=== PATIENT | male | born 1955 | race Caucasian/White ===

== ENCOUNTER 2017-07-07 14:32 | Inpatient (IN) | payer BC ==
[2017-07-07 15:11] LABS: Hemoglobin 14.8 g/dL (14.0-18.0); Mean Corpuscular HGB CONC 34.3 g/dL (32.0-36.0); Mean Corpuscular Hemoglobin 33.3 pg (27.0-31.0); Mean Corpuscular Volume 97.3 fl (80.0-94.0); Mean Platelet Volume 8.7 fL (7.4-10.4); Platelet Count 218 thou/uL (130-400); RBC Distribution Width 11.9 % (11.5-14.5); Red Blood Cell (RBC) Count 4.45 mill/uL (4.70-6.10); White Blood Cell (WBC) Count 21.4 thou/uL (4.8-10.8)
[2017-07-07 15:25] LABS: Band 6 % (5-11); Lymphocytes 7 % (21-51); MDiff Complete? YES; Metamyelocyte 1 % (0-0); Monocytes 4 % (0-10); Myelocyte 1 % (0-0); Neutrophil 81 % (42-75); PLT Morphology Comment Appears Adequate; RBC Morphology Normal
[2017-07-07] MEDS ORDERED: Fentanyl 100 MCG/2 ML VIAL ONE ×5 (15:25→21:03)
--- NOTE | 2017-07-07 15:32 | RAD ---
TWO AP VIEWS OF THE CHEST 07/07/17 INDICATION: Patient fell from a storage trailer, found on left side with femur pain. COMPARISON: None. FINDINGS: The lungs are clear. No pleural effusion is evident. No pneumothorax is demonstrated. No definite acu te osseous abnormality is evident. Cardiomediastinal silhouette is within normal limits. IMPRESSION: No acute cardiopulmonary abnormality. POS: [facility]
[2017-07-07 15:46] LABS: ALT (SGPT) 24 U/L (8-55); AST (SGOT) 16 U/L (5-34); Albumin 4.2 g/dL (3.5-5.0); Alkaline Phosphatase 57 U/L (40-150); Anion Gap 13 mmol/L (10-20); BUN (Urea Nitrogen) 15 mg/dL (8.4-25.7); Bilirubin, Total 0.4 mg/dL (0.2-1.2); CK (CPK) 131 U/L (30-200); Calc. Creatinine Clearance 0 mL/min (70-130); Calcium 8.8 mg/dL (7.8-10.44); Carbon Dioxide 23 mmol/L (22-29); Chloride 106 mmol/L (98-107); Estimated GFR-MDRD Greater than 90; Globulin 2.5 g/dL (2.4-3.5); Glucose 126 mg/dL (70-105); Potassium 3.7 mmol/L (3.5-5.1); Protein, Total 6.7 g/dL (6.0-8.3); Sodium 138 mmol/L (136-145)
--- NOTE | 2017-07-07 16:13 | RAD ---
LEFT FEMUR TWO VIEWS: History: Fall, pain. Comparison: None. FINDINGS: There is a displaced oblique fracture with comminution along the proximal left femur extending into t he intertrochanteric region. IMPRESSION: Proximal left hip and femur fracture. POS: [facility]
[2017-07-07] MEDS ORDERED: Lidocaine 1% PF 5 ML VIAL ONE (16:15)
[2017-07-07] MEDS ORDERED: Glycopyrrolate 0.2 MG/ML 5 ML SYRINGE ONE (16:15)
[2017-07-07] MEDS ORDERED: PROPOFOL 200 MG/20 ML VIAL ONE (16:15)
[2017-07-07] MEDS ORDERED: Ondansetron HCl/PF 4 MG/2 ML Vial ONE (16:15)
[2017-07-07] MEDS ORDERED: Ketorolac Tromethamine 30 MG/ML VIAL ONE (16:15)
[2017-07-07] MEDS ORDERED: Dexamethasone 20 MG/5 ML VIAL ONE (16:15)
--- NOTE | 2017-07-07 16:17 | RAD ---
AP PELVIS ONE VIEW: History: 61-year-old male with history of pain following trauma and fall. FINDINGS: The SI joints appear to have some sclerotic margins and are somewhat indistinct. There is bilateral h ip joint arthrosis. There is an incompletely visualized markedly displaced comminuted subtrochanteric fracture with marked foreshortening. The femoral neck and femoral head appear intact. IMPRESSION: Markedly displaced foreshortened incompletely visualized intertrochanteric and subtrochanteric fractu re of the left femur. Bilateral SI joint sclerosis with some poor definition. Bilateral hip joint art hrosis. POS: [facility]
[2017-07-07] MEDS ORDERED: Dextrose 5% in Water 1,000 ML IV PRN (17:01)
[2017-07-07] MEDS ORDERED: Dextrose 50% Abboject 50 ML SYRINGE SLOW IVP PRN (17:01)
[2017-07-07] MEDS ORDERED: hydrALAZINE 20 MG/ML VIAL SLOW IVP PRN (17:01)
[2017-07-07] MEDS ORDERED: Ondansetron HCl/PF 4 MG/2 ML Vial IVP PRN ×2 (17:01→19:07)
[2017-07-07] MEDS ORDERED: CEFAZOLIN/Water 2 GM/20 ML SYRINGE ONE ×2 (17:21→17:22)
[2017-07-07] MEDS ORDERED: Midazolam HCl 2 mg/2 ml Vial ONE (17:27)
[2017-07-07] MEDS ORDERED: HYDROcodone/Acetaminophen 10/325 mg Tablet PO PRN (18:05)
[2017-07-07] MEDS ORDERED: Fentanyl 100 MCG/2 ML VIAL SLOW IVP PRN (18:06)
[2017-07-07] MEDS ORDERED: Cyclobenzaprine 10 MG TAB PO PRN (18:07)
--- NOTE | 2017-07-07 18:16 | HP ---
DATE OF ADMISSION: 07/07/2017 REQUESTING PHYSICIAN: Dr. Perez, Emergency Department ADMITTING PHYSICIAN: Dr. Cho. CONSULTING PHYSICIAN: Dr. Raul Joyce, Orthopedics. HISTORY OF PRESENT ILLNESS: The patient is a 61-year-old male who apparently was on top of a car hauling trailer when he reports that he slipped, landing on his feet and then falling over onto his left side. He denies any other injuries. He denies loss of consciousness. He reports he laid on the ground approximately 1 hour until he was found by his and EMS was summoned. He was then transported to [facility]. A diagnostic evaluation identified a left proximal comminuted femur fracture. Trauma services was consulted for admission and management. Dr. Raul Joyce , Orthopedics, was consulted by the ER physician. The patient reports pain is exacerbated by any sort of movement. He denies numbness or tingling in extremity. He denies any other pain on any other areas of his body. He reports pain is alleviated by lying still and the administration of IV analgesia he has had in the Emergency Department. The pain is described as sharp. PAST MEDICAL HISTORY: Hypothyroidism. PAST SURGICAL HISTORY: None. SOCIAL HISTORY: The patient lives at home with . He denies tobacco use. Reports ETOH use of 2-3 beers per day. Denies drug use. CURRENT MEDICATIONS: Synthroid 200 mcg daily, aspirin 81 mg daily, last use 2 days ago. ALLERGIES: None. LABORATORY DATA: Hematology: WBC 21.4, RBC 4.45, hemoglobin 14.8, hematocrit 43.3, platelets 218. Chemistry: Sodium 138, potassium 3.7, chloride 106, carbon dioxide 23, BUN 15, creatinine 0.73, glucose 126. DIAGNOSTIC IMAGING: Left femur displaced oblique fracture with comminution along the proximal left femur extending into the intertrochanteric region. REVIEW OF SYSTEMS: Constitutional: The patient denies recent weight loss, weakness, malaise. HEENT: Negative for complaint. Respiratory: No shortness of breath, no cough. No wheezing. Cardiovascular: No chest pain, no palpitations. Gastrointestinal: No abdominal pain, no nausea, vomiting, diarrhea or constipation. Musculoskeletal: Pain to the left hip and left femur area. Skin : Denies rashes or other injury. Neurologic: Denies weakness, dizziness, change in mental status. Psychiatric: Denies anxiety or depression. PHYSICAL EXAMINATION: VITAL SIGNS: Pulse 83, blood pressure 115/61, respirations 16, O2 sat 96% on room air. CONSTITUTIONAL: Well-developed, well-nourished male lying in bed, nontoxic appearing, no acute distress. HEENT: Atraumatic, normocephalic. Trachea midline. NECK: No neck tenderness. RESPIRATORY: Bilateral breath sounds clear to auscultation. No respiratory distress. CARDIOVASCULAR: Regular rate and rhythm. Heart sounds normal. ABDOMEN: Soft, nontender, nondistended, no masses, no guarding, no rigidity. BACK: No tenderness, no trauma noted. EXTREMITIES: Bilateral upper extremity and right lower extremity without trauma noted. Neurovascularly intact. Cap refill brisk. Left lower extremity pain with movement to the left leg. Pain with palpation to left upper thigh and hip area. Pulses 2+. Cap refill brisk. Able to move all digits. NEUROLOGIC: GCS of 15. Awake, alert and oriented x3. No focal deficits noted. No focal motor deficits noted. SKIN: No integumentary trauma noted. ASSESSMENT: 1. Fall from height. 2. Left proximal comminuted femur fracture. 3. Acute traumatic pain. PLAN: 1. Admit to hospital. 2. Consult with Dr. Joyce. Dr. Joyce plans to take patient to OR later tonight. 3. N.p.o. and IV fluids. 4. IV analgesia for pain. 5. SCDs for DVT prophylaxis until approved for chemical prophylaxis by orthopedic surgeon. 6. Discussed at length with orthopedic PA and patient and family plan for admission and recommendations for surgical procedure. The patient was discussed with Dr. Cho at time of evaluation. [facility] CENTERDesir[facility]
--- NOTE | 2017-07-07 18:19 | CON ---
DATE OF CONSULTATION: 07/07/2017 CHIEF COMPLAINT: Left hip pain. HISTORY OF PRESENT ILLNESS: Mr. Ly is a 61-year-old male who fell approximately 8 feet. He was w orking with heavy machinery. He landed on his left hip and side. He was unable to ambulate. He had immediate pain in the left leg. He was taken to the emergency department. EMS transported him. He was found to have a left subtrochanteric femur fracture on evaluation in the emergency department wi th x-rays. A trauma workup was completed, no other injuries were identified. He was made comfortabl e with pain medication. Orthopedics was consulted for his injury. The General Surgery Trauma Servic e has admitted the patient to the hospital. PAST MEDICAL HISTORY: The patient denies active medical problems. PAST SURGICAL HISTORY: No recent surgeries. He did have a previous ankle fracture surgery many year s ago. ALLERGIES: No known drug allergies. 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 He denies smoking, alcoh ol or drug use. PHYSICAL EXAMINATION: VITAL SIGNS: The patient vital signs are stable. He is afebrile. He is normotensive. HEENT: Normocephalic, atraumatic. RESPIRATORY: Breathing comfortably. ABDOMEN: Soft, nontender, nondistended. MUSCULOSKELETAL: The patient's left hip has minimal swelling. He has an externally rotated position of the leg. He is able to flex and extend the foot and ankle. He has palpable dorsalis pedis pulse . Intact sensation distally in the dorsal and plantar aspect of the foot. IMAGES: X-rays of the left hip and pelvis demonstrate a subtrochanteric femur fracture with three pa rts and comminution. This is significantly displaced. IMPRESSION: Left subtrochanteric femur fracture. PLAN: At this point, the patient will need to go to the operating room for intramedullary nail fixat ion of left femur. He is aware of risks and benefits. Risks of surgery to include infection, hardwa re failure, nonunion, malunion, DVT, PE, and others. He will have adequate pain control. He will savage ve DVT prophylaxis and surgical antibiotic prophylaxis. He will remain n.p.o. until after surgery. Risks have been reviewed and he wants to proceed.
[2017-07-07] MEDS ORDERED: Rocuronium Bromide 50 MG/5 ML VIAL ONE ×2 (18:41→19:44)
[2017-07-07] MEDS ORDERED: Promethazine HCl 25 MG/ML VIAL IM PRN (19:07)
[2017-07-07] MEDS ORDERED: Promethazine HCl 25 MG/ML VIAL SLOW IVP PRN (19:07)
[2017-07-07] MEDS ORDERED: HYDROmorphone 2 MG/ML VIAL SLOW IVP PRN (19:07)
--- NOTE | 2017-07-07 22:49 | OP ---
DATE OF OPERATION: 07/07/2017 OPERATION: Left femur subtrochanteric fracture, intramedullary nail with open reduction. PREOPERATIVE DIAGNOSIS: Left displaced subtrochanteric femur fracture. POSTOPERATIVE DIAGNOSIS: Left displaced subtrochanteric femur fracture. COMPLICATIONS: None. ESTIMATED BLOOD LOSS: 200 mL [employer]ENIOR [employer] CONSULTANT: Franc Goodson. IMPLANTS: Synthes long trochanteric nail, size 440 x 11 mm with helical blade. INDICATIONS: Mr. Ly is a 61-year-old male who fell today. He fractured his left femur in the sub trochanteric region. He sustained a displaced fracture. He was indicated for open reduction and int ramedullary nail fixation. He elected to proceed with this despite risks. DESCRIPTION OF OPERATION: Mr. Ly was identified in the preoperative holding area. His correct ex tremity was marked. He was carried to the operating room. He was positioned supine. General anesth esia was induced. A multidisciplinary timeout was performed. The left lower extremity was prepped a nd draped in sterile fashion. At this point, we proceeded with evaluation of the fracture with intraoperative x-ray. We were unabl e to adequately reduce the fracture in a closed fashion using traction and reduction maneuvers. At t his point, we decided to open the fracture. We made a lateral incision. We dissected down through t he fascia. We reflected the vastus lateralis anteriorly. We made an approach to the lateral femur. We were able to expose the lateral femoral cortex. We then placed a series of reduction clamps arou nd the fracture reducing the bone into its anatomic position. At this point, we took x-ray images co nfirming our reduction. We then passed a cable carefully using a cable passer around the femur. Thi s was tightened, holding our reduction and crimped. At this point, we made a secondary incision prox imal to the greater trochanter. We inserted a guidewire. We overreamed the guidewire more distally. We then inserted our ball-tip guidewire down to the knee. Next, we overreamed our guidewire to a s ize of 12.5 mm. We then inserted an 11-mm Synthes nail. We seated this appropriately. We placed th e helical blade in the center position of the femoral head. This was checked on the AP and lateral v iew. We placed this into a dynamic position using our locking screw. Finally, we placed our distal cross-locking screw using perfect chickaloon technique. We thoroughly irrigated with copious lavage. We then closed with #1 Vicryl suture, 2-0 Vicryl suture, and minnie for the skin. A sterile dressing was applied. The patient was taken to the recovery room in good condition without complication.
[2017-07-07 23:34] LABS: #Lymphocytes 0.6 thou/uL (1.20-3.40); #Monocytes 0.6 thou/uL (0.11-0.59); #Neutrophils 14.8 thou/uL (1.40-6.50); %Basophils 0.2 % (0.0-1.0); %Eosinophils 0.1 % (0.0-10.0); %Lymphocytes 3.8 % (21.0-51.0); %Monocytes 3.8 % (0.0-10.0); Hemoglobin 11.7 g/dL (14.0-18.0); Mean Corpuscular Volume 97.2 fl (80.0-94.0); Platelet Count 185 thou/uL (130-400); RBC Distribution Width 11.9 % (11.5-14.5); Red Blood Cell (RBC) Count 3.43 mill/uL (4.70-6.10)
[2017-07-07] MEDS: Sodium Chloride 0.9% 1,000 ML IV SCH (23:47)
[2017-07-07] MEDS: Acetaminophen 1,000 MG in Premix Bag 1 BAG IVPB SCH (23:48)
[2017-07-08 00:29] VITALS: BMI 27.0
[2017-07-08] MEDS: CEFAZOLIN/Water 2 GM/20 ML SYRINGE SLOW IVP SCH ×2 (01:47→08:51)
[2017-07-08] MEDS: Sodium Chloride 0.9% 1,000 ML IV SCH ×2 (01:49→11:04)
[2017-07-08 04:24] LABS: #Lymphocytes 0.7 thou/uL (1.20-3.40); #Monocytes 0.6 thou/uL (0.11-0.59); #Neutrophils 10.7 thou/uL (1.40-6.50); %Eosinophils 0.2 % (0.0-10.0); %Lymphocytes 5.8 % (21.0-51.0); %Monocytes 5.1 % (0.0-10.0); %Neutrophils 88.9 % (42.0-75.0); Hemoglobin 10.9 g/dL (14.0-18.0); Mean Corpuscular HGB CONC 34.2 g/dL (32.0-36.0); Mean Corpuscular Hemoglobin 33.5 pg (27.0-31.0); Mean Corpuscular Volume 97.7 fl (80.0-94.0); Mean Platelet Volume 8.9 fL (7.4-10.4); Platelet Count 187 thou/uL (130-400); RBC Distribution Width 11.8 % (11.5-14.5); Red Blood Cell (RBC) Count 3.26 mill/uL (4.70-6.10)
[2017-07-08 04:37] LABS: Anion Gap 9 mmol/L (10-20); BUN (Urea Nitrogen) 12 mg/dL (8.4-25.7); Calc. Creatinine Clearance 147 mL/min (70-130); Calcium 8.1 mg/dL (7.8-10.44); Carbon Dioxide 27 mmol/L (22-29); Chloride 103 mmol/L (98-107); Estimated GFR-MDRD Greater than 90; Glucose 143 mg/dL (70-105); Potassium 4.2 mmol/L (3.5-5.1); Sodium 135 mmol/L (136-145)
[2017-07-08] MEDS: Acetaminophen 1,000 MG in Premix Bag 1 BAG IVPB SCH ×3 (06:12→17:33)
--- NOTE | 2017-07-08 08:17 | RAD ---
TWO VIEWS LEFT FEMUR: DATE: 07/07/17. PROVIDED CLINICAL HISTORY: ORIF. FINDINGS: Comparison is made with the study dated 07/07/17. Multiple spot fluoroscopic images of the left femur are submitted, demonstrating interval changes of antegrade intramedullary femoral nail placement transfixing the previously described proximal femoral fracture, with resultant improved alignment. Proximal and distal interlocking screws are noted, as well as proximal cerclage cable. IMPRESSION: As above. POS: [facility]
[2017-07-08] MEDS: Ibuprofen 800 MG TAB PO SCH ×2 (08:51→17:33)
[2017-07-08] MEDS ORDERED: Non-Formulary Item 1 EACH (Levothyroxine Sodium [Synthroid] 200 MCG) PO SCH (09:00)
[2017-07-08] MEDS ORDERED: Levothyroxine Sodium 100 MCG TAB PO SCH (09:00)
[2017-07-08] MEDS: traMADol HCl 50 MG TAB PO PRN ×2 (09:07→14:37)
--- NOTE | 2017-07-08 09:07 | PRG ---
DATE OF SERVICE: 07/08/2017 SUBJECTIVE: Donald is a 61-year-old white male who is postoperative day #1 from a left hip three-part subtrochanteric hip fracture status post open reduction internal fixation with long transfemoral garrett l fixation with single cerclage wire. He is doing relatively well. He is comfortable this morning, a little sluggish, but overall looks relatively good. Communicates effectively. OBJECTIVE: VITAL SIGNS: Temperature 97, pulse 81, respiratory rate 14, blood pressure 99/61. GENERAL: He is alert and oriented to person, place, time, and situation, and appropriate with examin er, a little groggy, but otherwise nice affect. LABORATORY: Hemoglobin and hematocrit 10.9 and 31.9 respectively. EXTREMITIES: He is neurovascularly intact in the left lower extremity. There is no strike through i n the incision. External rotation is appropriate for the left lower extremity. Good full digital ex cursion and sensation and pulses are also palpable on the left foot. ASSESSMENT: 1. A 61-year-old white male postoperative day 1 left hip three-part intertrochanteric fracture treat ed with open reduction internal fixation long transfemoral nail. 2. Postoperative hemorrhagic anemia. PLAN: Continue current care. Probable discharge in the next 48 hours depending on progress with the rapy.
[2017-07-08] MEDS ORDERED: Bisacodyl 10 MG SUPP PR PRN (09:17)
--- NOTE | 2017-07-08 11:17 | PRG-2 ---
DATE OF SERVICE: 07/08/2017 ATTENDING PHYSICIAN: Dr. Woodrow Cho SUBJECTIVE: This is a 61-year-old male status post ORIF of a left intertrochanteric fracture after a fall off of a trailer. The patient says the pain is reasonably well controlled; however, still has some significant breakthrough pain from time to time. Additionally, the patient has had some issues with urinary retention postoperatively and in and out catheterization with a residual of 400 yesterda y. He has no significant history of BPH or urinary retention. Otherwise, there were no acute events overnight. OBJECTIVE: VITAL SIGNS: Temperature 98.7, pulse 81, respiratory 14, O2 sat 98 on 2 liters nasal cannula, blood pressure 99/61. GENERAL: The patient is resting comfortably in bed in no acute distress. HEENT: Atraumatic, normocephalic. CARDIOVASCULAR: Regular rate and rhythm. LUNGS: Clear to auscultation bilaterally. ABDOMEN: Soft, tender, bowel sounds in all 4 quadrants. EXTREMITIES: The patient is neurovascularly intact. He moves all 4 extremities. Dressing on left l ower extremity appears to be clean. NEUROLOGIC: No focal neurological deficits. SIGNIFICANT LABS: Hemoglobin of 10.9, white count 12.0. ASSESSMENT: 1. Status post open reduction and internal fixation of left intertrochanteric for fracture following a fall from height. 2. Acute traumatic pain. 3. Postoperative hemorrhagic anemia. 4. Reactive leukocytosis. PLAN: 1. PT evaluation is pending. Will work with PT and consider placement in a rehab facility versus ou tpatient rehab. 2. Acute joint pain. We will schedule the patient's Motrin and add p.r.n. tramadol. No IV pain con trol necessary. 3. Anemia. The patient's vital signs are normal. This is most likely related to operative blood lo ss. We will recheck a CBC in the morning. 4. Leukocytosis. This is improving from previous labs. This is all likely all secondary to a react ld leukocytosis from the fracture. 5. Discharge planning pending PT evaluation and rehab evaluation. The patient will likely be ready to discharge in the next 48 hours. This patient was seen and evaluated by Dr. Woodrow Cho who agrees with above assessment and plan.
--- NOTE | 2017-07-08 13:25 | PQF ---
DATE: 07-08-17 ATTN: DR. ANNA MOON Please exercise your independent, professional judgment in responding to the clarification form. Clinical indicators are provided on the bottom of this form for your review Please check appropriate box(s): [ X ] Acute blood loss anemia [ ] Post-op anemia related to acute blood loss [ ] Other diagnosis [ ] Unable to determine In addition, please specify: Present on Admission (POA): [X ] Yes [ ] No [ ] Unable to determine For continuity of documentation, please document condition throughout progress notes and discharge summary. Thank You. CLINICAL INDICATORS - SIGNS / SYMPTOMS / LABS PN MELISA JANG 07-08-17: POSTOPERATIVE HEMORRHAGIC ANEMIA. ANEMIA. THE PATIENTS VITAL SIGNS ARE NORMAL. THIS IS MOST LIKELY RELATED TO OPERATIVE BLOOD LOSS. WE WILL CHECK A CBC IN THE MORNING. OPERATIVE NOTE 07-07-17: ESTIMATED BLOOD LOSS 200ML HEMOGLOBIN: 07-07-17: 14.8 07-07-17: 11.7 07-08-17: 10.9 HEMATOCRIT: 07-07-17: 43.3 07-07-17: 33.3 07-08-17: 31.9 RISK FACTORS: OPERATIVE NOTE: LEFT FEMUR SUBTROCHANTERIC FRACTURE, INTRAMEDULLARY NAIL WITH OPEN REDUCTION H&P: LEFT FEMUR SUBTROCHANTERIC FRACTURE TREATMENTS: PRO MELISA ROMEROOrtega 07-08-17: POSTOPERATIVE HEMORRHAGIC ANEMIA. ANEMIA. THE PATIENTS VITAL SIGNS ARE NORMAL. THIS IS MOST LIKELY RELATED TO OPERATIVE BLOOD LOSS. WE WILL CHECK A CBC IN THE MORNING. (This form is maintained as a part of the permanent medical record) 2014 [employer]. All Rights Reserved [email or web address] Office: [phone] FIORDALIZA
[2017-07-08] MEDS ORDERED: Acetaminophen 500 MG TAB PO SCH (18:00)
[2017-07-08] MEDS ORDERED: Senokot S 8.6-50 MG TAB PO SCH (21:00)
[2017-07-08] MEDS ORDERED: Enoxaparin Sodium 40 MG/0.4 ML SYRINGE SC SCH (21:00)
[2017-07-08] MEDS: Docusate 100 MG CAP PO SCH (21:42)
[2017-07-09] MEDS: Ibuprofen 800 MG TAB PO SCH ×2 (00:42→08:52)
[2017-07-09] MEDS: Acetaminophen 500 MG TAB PO SCH ×3 (00:42→11:50)
[2017-07-09 04:22] LABS: #Eosinphils 0.1 thou/uL (0.0-0.7); #Lymphocytes 2.6 thou/uL (1.20-3.40); #Neutrophils 6.2 thou/uL (1.40-6.50); %Basophils 0.2 % (0.0-1.0); %Eosinophils 0.7 % (0.0-10.0); %Lymphocytes 25.8 % (21.0-51.0); %Monocytes 10.4 % (0.0-10.0); %Neutrophils 62.9 % (42.0-75.0); Hemoglobin 9.1 g/dL (14.0-18.0); Mean Corpuscular HGB CONC 35.2 g/dL (32.0-36.0); Mean Corpuscular Hemoglobin 34.6 pg (27.0-31.0); Mean Corpuscular Volume 98.3 fl (80.0-94.0); Mean Platelet Volume 9.3 fL (7.4-10.4); Platelet Count 154 thou/uL (130-400); RBC Distribution Width 11.9 % (11.5-14.5); Red Blood Cell (RBC) Count 2.63 mill/uL (4.70-6.10); White Blood Cell (WBC) Count 9.9 thou/uL (4.8-10.8)
[2017-07-09] MEDS: Levothyroxine Sodium 100 MCG TAB PO SCH ×2 (05:42→05:45)
[2017-07-09] MEDS: Docusate 100 MG CAP PO SCH (08:52)
[2017-07-09 11:55] VITALS: BP 106/62; TEMP 98.3
--- NOTE | 2017-07-09 22:37 | DIS ---
DATE OF ADMISSION: 07/07/2017 DATE OF DISCHARGE: 07/09/2017 ADMITTING PHYSICIAN: Dr. Woodrow Cho. DISCHARGING PHYSICIAN: Dr. Woodrow Cho. CONSULTING: Dr. Raul Joyce, Orthopedics CHIEF COMPLAINT: Left femur fracture. HISTORY OF PRESENT ILLNESS: A 61-year-old male who was on top of a trailer when he slipped and fell approximately 8 feet, landing on his feet, and then falling over his left side. He had no other inju mary. He was brought to the [facility] ED via EMS, was found to have a left proximal comminuted fe mur fracture. Dr. Raul Joyce, Orthopedics was consulted and the decision was made to take the patient to the OR for surgical repair of his left femur. Trauma service was asked to admit. Th e patient was taken to the OR on 07/07/2017, where he underwent an intramedullary nail with open redu ction of his left femur. The patient tolerated the procedure well and was discharged home with a deann mckinnon on 07/09/2017 in good condition. ADMISSION DIAGNOSIS: Left displaced subtrochanteric femur fracture. DISCHARGE DIAGNOSIS: Left displaced subtrochanteric femur fracture, status post intramedullary nail with open reduction. PROCEDURES PERFORMED: Left femur subtrochanteric fracture, intramedullary nail with open reduction. DISCHARGE MEDICATIONS: Patient was discharged on all of his home medications. He was encouraged to take Tylenol 1000 mg q.6 hours, ibuprofen 800 mg q.8 hours, and tramadol 50 mg q.6 hours as needed fo r pain control. The patient was also advised to start on 81 mg aspirin b.i.d. He was given a prescr iption for tramadol 50 mg q.6 hours, 20 tablets. Activity orders orthopedic restrictions include 50% weightbearing on left lower extremity. THERAPY INSTRUCTIONS: None. DIETARY INSTRUCTIONS: The patient can resume regular diet. FOLLOWUP INSTRUCTIONS: The patient is to follow up with his primary care doctor as needed. He is to follow up with Dr. Raul Joyce in 14 days. He is to follow up with Dr. Woodrow Cho as n eeded. PHYSICAL EXAMINATION: This patient was seen and examined along with Dr. Woodrow Cho, who agrees wi th this discharge plan. The patient is instructed to follow up with Dr. Ohaju as needed. EQUIPMENT AND SUPPLIES: The patient was given a prescription for a walker.
== END 2017-07-09 14:35 | disposition home or self-care (01) | DRG 481 ==
LOC: ERS 14:32 → SURG B 17:04 → SDC 17:12 → SURG B 23:03
PROVIDERS: ADMIT Surgery; ATTEND Surgery
PROC: 0QS706Z Reposition Left Upper Femur with Intramedullary Internal Fixation Device, Open Approach (ICD-10-PCS; principal; 2017-07-07)
DX: S72.22XA Displaced subtrochanteric fracture of left femur, initial encounter for closed fracture (principal); D62 Acute posthemorrhagic anemia; E03.9 Hypothyroidism, unspecified; I10 Essential (primary) hypertension; Z79.82 Long term (current) use of aspirin; W17.89XA Other fall from one level to another, initial encounter; Y93.89 Activity, other specified; R33.9 Retention of urine, unspecified; W31.89XA Contact with other specified machinery, initial encounter
CPT/HCPCS: 36415; 71045; 72170; 76001; 80048; 80053; 82550; 85025; 86850; 86900; 86901; 96374; C1713; C1769; G8978-GP-CK; G8979-GP-CJ; G8987-GO-CK; G8988-GO-CI; J0131; J1100; J1170; J1650; J1885; J2001; J2250; J2405; J2704; J3010